=== PATIENT | male | born 1955 | race Caucasian/White ===

== ENCOUNTER → 2017-11-11 10:28 | Outpatient (CLI) | payer OTHER, SELFPAY ==
--- NOTE | 2017-11-11 10:39 | RAD_ITS ---
STUDY: X-RAY CHEST REASON FOR EXAM: Male, 62 years old. Fever, cough TECHNIQUE: Frontal and lateral views COMPARISON: None. FINDINGS: The lungs are clear and expanded. There is no demonstrated pleural abnormality. Normal size heart. Normal mediastinum and joann. Normal visualized pulmonary arteries. Normal visualized aortic arch and descending thoracic aorta. Mild degenerative changes and scoliosis of thoracic spine. Normal visualized ribs, clavicles, and shoulders. There is no demonstrated abnormality of the visualized soft tissue structures of the upper abdomen. RAD/Chest PA and Lateral IMPRESSION: No acute pulmonary pathology of the chest. Electronically Signed: Eduin Murphy DO at 11:12 EDT Tel [phone], Service support ,
== END ==
PROVIDERS: Visit Provider Physician Assistant Surgical
DX: R06.02 Shortness of breath (principal)
CPT/HCPCS: 71046

== ENCOUNTER 2017-11-13 15:17 | Emergency (ER) | payer OTHER, SELFPAY ==
[2017-11-13 15:18] VITALS: BP 149/71; PULSE 87; RESP 16; TEMP 38.4; O2SAT 98; BMI 24.3
--- NOTE | 2017-11-13 15:35 | RAD_ITS ---
STUDY: X-RAY CHEST REASON FOR EXAM: Male, 62 years old. Fever x1 week TECHNIQUE: PA and lateral views of the chest. 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 The lungs are clear and expanded. There is no demonstrated pleural abnormality. Normal size heart. Normal mediastinum and joann. Normal visualized pulmonary arteries. Normal visualized aortic arch and descending thoracic aorta. There is a mild thoracic dextroscoliosis. There is mild diffuse endplate spondylosis of the thoracic spine. Normal visualized ribs, clavicles, and shoulders. There is no demonstrated abnormality of the visualized soft tissue structures of the upper abdomen. RAD/Chest PA and Lateral IMPRESSION: Mild thoracic dextroscoliosis. Mild diffuse endplate spondylosis of the thoracic spine. Calcified plaques of the aortic arch. No acute cardiopulmonary disease process is seen. Chest findings are stable in the interval. Electronically Signed: Nghia Ford MD at 16:31 EDT , Service support ,
--- NOTE | 2017-11-13 15:39 | ED.DCSUM_ITS ---
- ER Visit Summary Date of Service: 11/13/17 Chief Complaint: Fever History of Present Illness: The patient is a 62 M with no primary care physician. He reports he has a fever that began 1 week ago. States that it seems to be worst in the morning and has been as high as 103?. Complains of chills and sweats when the fever breaks. He denies sore throat or ear pain. He has a little bit of cough that is nonproductive. No chest pain or difficulty breathing. No abdominal pain, nausea, vomiting, or diarrhea. His last bowel movement was today. He has had no melena or hematochezia. He denies any rectal pain. No dysuria or frequency. He reports that he has a headache that comes and goes with the fever and is currently 4 out of 10 in severity. Patient reports that he was seen at urgent care and had a chest x-ray 2 days ago that was unremarkable. He had a rapid strep today that was negative. [place] has [place] been out of the [place] and has had mosquito bites. Physical Examination: Vitals: 101.2, 149/71, 87, 16, 98% on room air which is not hypoxic. General: Well-nourished and well-developed. Head: Normocephalic atraumatic. HEENT: Scarring of his right TM. No evidence of otitis media. No pharyngeal erythema or tonsillar exudate. Neck: Supple, no lymphadenopathy. No JVD. Nontender. Cardiovascular: Regular rate and rhythm. No murmurs. Respiratory: No respiratory distress. Clear to auscultation bilaterally. Abdominal: Soft, nontender, nondistended, normal bowel sounds. No guarding, rebound, or peritoneal signs. Back: Nontender. Extremities: Nontender, no edema. Skin: Normal color, no rash. Neurologic: Alert and oriented ?3. Cranial nerves II through XII are intact. Normal strength and sensation. Psych: Normal affect. Test Results: CBC is marked first lymphocytes of 42. Chem-7 is more for sodium 135 potassium 3.3. LFTs marked for an alk phos 122, ALT of 67, AST 42. UA is normal. Lactic acid is 1.8. Chest x-ray shows chronic changes but in no acute disease. Right upper quadrant ultrasound shows an unremarkable gallbladder. Normal distended gallbladder with a 3 mm wall. No Andre sign. No pericholecystic fluid or biliary stones. Common bile duct is 4 mm. Emergency Department Course and Treatment: Patient had an IV placed. He was given a liter of normal saline. He was given Tylenol for his fever. He is resting comfortably. Had a prolonged discussion with the patient about the possibility of viral meningitis. He is refused a spinal tap. I feel that is a reasonable course of action. Treatment Plan: Patient was discussed with Dr. Alfred and will be discharged with instructions to follow-up with him next week for further evaluation. Blood cultures were sent while he was here. Return to the emergency department for any worsening symptoms. Disposition: To home in improved and stable condition. Impression: 1. Fever, uncertain cause. This note was generated with [employer] dictation software. It may contain incorrect words, spelling, and punctuation that were not noted in review of the chart prior to signing ED Disposition - Plan for ED Patient: Disposition: Home or Assisted Living Chief Complaint: Fever Instructions: ED Fever Unconf Cause Referrals: Ladarius Alfred MD [STAFF PHYSICIAN] - 5-7 Days
[2017-11-13 15:59] LABS: Absolute Lymphocyte Count 1.97 X10^3/ul (0.83-4.51); Absolute Neutrophil Count 2.3 X10^3/uL (2.0-7.7); Basophil# 0.04 X10^3/uL; Basophil% 0.9 % (0-1); Eosinophil# 0.04 X10^3/uL; Eosinophils% 0.9 % (0-5); Hematocrit 40.4 % (40-54); Lymphocyte # 1.97 X10^3/ul (4.0); Lymphocyte % 42.3 % (19-41); Mean Corp Hgb Conc 34.7 g/gl (32-36); Mean Corpuscular Hgb 29.3 pg (27.0-32.0); Mean Corpuscular Volume 84.5 fL (80-94); Mean Platelet Vol. 9.4 fl (6.2-12.0); Monocyte# 0.32 X10^3/uL; Monocyte% 6.9 % (0-10); Neutrophil # 2.29 X10^3/uL (2.7-7.7); Platelet Count 159 K/mm3 (150-450); RBC Distribution Width CV 12.5 % (11.6-14.6); Red Blood Count 4.78 M/mm3 (4.6-6.2); White Blood Count 4.7 K/mm3 (4.4-11.0)
[2017-11-13] MEDS: Acetaminophen 500 MG Tablet 1000 MG PO (16:00)
[2017-11-13] MEDS: 0.9% Normal Saline 1,000 ML 1000 ML IV (16:15)
[2017-11-13 16:20] LABS: ALB/GLOB Ratio 0.9 RATIO (0.9-2.4); AST(SGOT) 42 U/L (15-37); Alanine Aminotransfer ALT/SGPT 67 U/L (16-61); Albumin, Serum 3.4 g/dL (3.2-5.0); Alkaline Phosphatase 122 U/L (45-117); Anion Gap 5 (5-15); BUN 9 mg/dL (7-18); BUN/Creat Ratio 7.3 RATIO (10-20); Chloride 98 mmol/L (98-107); Creatinine, Serum 1.23 mg/dL (0.70-1.30); EST Glomerular Filtration Rate 63 mL/min (>60); Est Glom Filt Rate - Afr Amer 77 mL/min (>60); Estimated Creatinine Clearance 63.07 ml/min; Globulin 3.9 g/dL (2.2-4.2); Glucose 99 mg/dL (74-106); Potassium 3.3 mmol/L (3.5-5.1); Protein, Total 7.3 g/dL (6.4-8.2); Sodium Level 135 mmol/L (136-145)
[2017-11-13 16:21] LABS: POSITIVE COUNT NO; POSITIVE DIFFERENTIAL NO; POSITIVE MORPHOLOGY NO
[2017-11-13 16:43] LABS: Lactic Acid 1.8 mmol/L (0.4-2.0)
--- NOTE | 2017-11-13 17:25 | US_ITS ---
STUDY: ABDOMINAL ULTRASOUND - RIGHT UPPER QUADRANT REASON FOR VISIT: Male, 62 years old. Abnormal labs TECHNIQUE: Ultrasound evaluation of the right upper quadrant was performed with real-time and static esteban-scale imaging. TECHNICAL QUALITY: Limited. Examination limited by bowel gas. COMPARISON: None. FINDINGS: Liver: The liver measures 14.8 cm. There is normal echogenicity of the liver. The bile ducts are within normal limits. There is hepatic color flow. The direction of portal flow is hepatopetal. There is no demonstrated mass lesion. Gallbladder: Normal distended gallbladder. The gallbladder wall measures 3 mm. There is a negative sonographic Andre's sign. There is no pericholecystic fluid. There are no gallstones. Common Bile Duct (C.B.D.): The common bile duct measures 4 mm. Pancreas: There is nonvisualization of the pancreas. Right Kidney: Normal size of the right kidney. The right kidney measures 11.1 cm. Normal renal cortex. The right cortex measures 1.3 cm. There is no demonstrated renal mass or cyst. There is no right hydronephrosis. US/Gallbladder IMPRESSION: Nonvisualized pancreas. Unremarkable gallbladder. Normal appearance of the liver and right kidney Electronically Signed: Matthew Marshall DO at 18:31 EDT Tel , Service support ,
[2017-11-13 17:48] LABS: Bacteria 0 SEEN /hpf (None Seen); Mucous, Urine 0 SEEN /hpf (<or=2+); Red Blood Cells-Urine 0 SEEN /hpf (0-5); Squamous Epithelial Cells - UA 0 SEEN /hpf (0-5); White Blood Cells 0 SEEN /hpf (0-5)
[2017-11-13 18:52] VITALS: BP 126/74; PULSE 80; RESP 18; O2SAT 96
[2017-11-13 18:53] LABS: Color, Urine Yellow (Yellow); Glucose, Dipstick Normal (Normal); Ketone-Dipstick Negative (Negative); Leukocyte Esterase-Dipstick Negative /ul (Negative); Nitrite-Dipstick Negative (Negative); Occult Blood-Urine Negative /ul (Negative); Protein-Dipstick Negative (Negative); Urine Bilirubin Dipstick Negative (Negative); Urine Clarity Clear (Clear); Urine Urobilinogen Normal (Normal)
[2017-11-13 19:43] VITALS: BP 123/82; PULSE 77; RESP 18; TEMP 36.9; O2SAT 95
[2017-11-13 19:54] VITALS: BP 116/75; PULSE 78; RESP 18; TEMP 36.9; O2SAT 95
--- NOTE | 2017-11-19 14:45 | CM.ED ---
Addendum entered by Gilda Vaughn 11/19/17 15:48: Dr. Alfred's office returned call. Patient is scheduled for earliest available appointment, on ThursdayDecember 01 at 0830. Patient will be notified of appointment. Original Note: ED CALLBACK: Patient states his fever is 101.0 today and he has had fevers for two weeks. He just noticed a rash developing on his chest. Patient denies fatigue at this time. Patient was instructed to f/u with Infectious Disease this week. He called to make an appointment today and was told the first available appt is early December. I contacted ID office, sent clinicals. Awaiting return call to tell me if they can see him any sooner. Encouraged patient to return to the ED given two weeks of persistent fever and new rash. Patient does not have an established PCP at this time. Patient states he is in agreement and will return to the ED today.
== END 2017-11-13 19:59 | disposition home or self-care (01) ==
PROVIDERS: Emergency Provider Emergency Medicine
DX: R50.9 Fever, unspecified (principal); R05 Cough; R51 Headache
CPT/HCPCS: 71046; 76705; 80053; 81001; 83605; 85025; 87040; 99284; J7030

== ENCOUNTER 2017-11-20 15:56 | Emergency (ER) | payer OTHER, SELFPAY ==
[2017-11-20 15:58] VITALS: BP 152/79; PULSE 94; RESP 16; TEMP 37.8; O2SAT 93; BMI 24.0
--- NOTE | 2017-11-20 17:11 | CT_ITS ---
STUDY: CT ABDOMEN AND PELVIS WITH CONTRAST REASON FOR EXAM: Male, 62 years old. Fever of unknown origin x2 weeks RADIATION DOSAGE (If Supplied By Facility): CTDIvol = ( 12.05 ) mGy, DLP = ( 892.53 ) mGycm TECHNIQUE: Transaxial images were obtained from the dome of the diaphragm to the symphysis pubis without oral contrast. 100mL ml of Isovue 370 contrast was administered. Sagittal and coronal images were reconstructed. Individualized dose optimization techniques were used for this CT. COMPARISON: None FINDINGS: Bibasilar airspace disease. The visualized portions of the heart are within normal limits. There is decreased attenuation of the liver consistent with steatosis. Several small nonenhancing liver cysts. Normal gallbladder and extrahepatic biliary system. Normal spleen. Normal pancreas. Normal bilateral adrenal glands. Normal right kidney. Normal left kidney. Normal visualized stomach. Normal small intestine. There are multiple colonic diverticula consistent with diverticulosis. The appendix is visualized and appears normal. Normal abdominal aorta. Normal inferior vena cava. Normal retroperitoneum. Normal urinary bladder. There is enlargement of the prostate gland. Small amount of nonspecific pelvic free fluid. Normal abdominal wall. There are diffuse degenerative changes of the visualized lumbar spine. CT/Abdomen/Pelvis W IV Cont ONLY IMPRESSION: 1. Bibasilar airspace disease 2. Unremarkable appendix and gallbladder. No acute findings in the abdomen or pelvis 3. Small amount of nonspecific pelvic free fluid Electronically Signed: Matthew Marshall DO at 18:38 EDT Tel , Service support ,
--- NOTE | 2017-11-20 17:11 | CT_ITS ---
STUDY: CT CHEST WITH CONTRAST REASON FOR EXAM: Male, 62 years old. Fever of unknown origin x2 weeks RADIATION DOSAGE (If Supplied By Facility): CTDIvol = ( 12.05 ) mGy, DLP = ( 892.53 ) mGycm TECHNIQUE: Transaxial imaging was performed following intravenous administration of 100mL ml of Isovue 370 contrast material. Individualized dose optimization techniques were used for this CT. COMPARISON: None. FINDINGS: Unremarkable thyroid. Left chest wall pacing device. The lungs are adequately inflated. Bibasilar airspace disease is noted. Infection cannot be excluded versus mild scarring. Lungs are otherwise clear. There is no demonstrated pleural abnormality. Normal heart and pericardium. Normal mediastinum. Normal hilar regions. Normal enhanced pulmonary arteries. Normal aorta arch and descending thoracic aorta. There are multi-level degenerative changes of the thoracic spine. There is no demonstrated abnormality of the visualized upper abdomen. CT/Chest WITH Contrast IMPRESSION: Adequately inflated lungs with bibasilar airspace disease. Infection cannot be excluded. No suspicious lymphadenopathy. Electronically Signed: Matthew Marshall DO at 18:39 EDT Tel , Service support ,
[2017-11-20 17:50] LABS: Absolute Lymphocyte Count 3.74 X10^3/ul (0.83-4.51); Absolute Neutrophil Count 1.4 X10^3/uL (2.0-7.7); Basophil# 0.08 X10^3/uL; Basophil% 1.4 % (0-1); Eosinophils% 1.7 % (0-5); Hematocrit 37.8 % (40-54); Hemoglobin 12.5 g/dl (13.0-16.5); Lymphocyte # 3.74 X10^3/ul (4.0); Lymphocyte % 65.4 % (19-41); Mean Corp Hgb Conc 33.1 g/gl (32-36); Mean Corpuscular Hgb 28.6 pg (27.0-32.0); Mean Corpuscular Volume 86.5 fL (80-94); Monocyte# 0.39 X10^3/uL; Monocyte% 6.8 % (0-10); Neutrophil % 24.5 % (47-70); POSITIVE COUNT NO; POSITIVE DIFFERENTIAL NO; POSITIVE MORPHOLOGY NO; Platelet Count 188 K/mm3 (150-450); RBC Distribution Width CV 13.5 % (11.6-14.6); RBC Distribution Width SD 42.7 fl (35.1-43.9); Red Blood Count 4.37 M/mm3 (4.6-6.2); White Blood Count 5.7 K/mm3 (4.4-11.0)
[2017-11-20] MEDS: 0.9% Normal Saline 1,000 ML 999 ML IV (17:50)
[2017-11-20 17:55] LABS: Erythrocyte Sedimentation Rate 1 mm/hr (0-20)
[2017-11-20 18:04] LABS: AST(SGOT) 57 U/L (15-37); Alanine Aminotransfer ALT/SGPT 113 U/L (16-61); Albumin, Serum 3.1 g/dL (3.2-5.0); Alkaline Phosphatase 116 U/L (45-117); Anion Gap 4 (5-15); BUN 6 mg/dL (7-18); BUN/Creat Ratio 5.6 RATIO (10-20); Bilirubin, Direct 0.17 mg/dL (0.00-0.30); Calcium,Total 8.4 mg/dL (8.5-10.1); Chloride 104 mmol/L (98-107); Creatinine, Serum 1.07 mg/dL (0.70-1.30); EST Glomerular Filtration Rate 75 mL/min (>60); Est Glom Filt Rate - Afr Amer 90 mL/min (>60); Globulin 3.4 g/dL (2.2-4.2); Glucose 84 mg/dL (74-106); Potassium 3.8 mmol/L (3.5-5.1); Protein, Total 6.5 g/dL (6.4-8.2); Sodium Level 139 mmol/L (136-145)
[2017-11-20 18:55] VITALS: BP 154/87; PULSE 96; RESP 14; TEMP 37.1; O2SAT 98
--- NOTE | 2017-11-20 19:07 | ED.VISSUMM ---
- ER Visit Summary Date of Service: 11/20/17 Chief Complaint: Fever History of Present Illness: The patient is a [address] Bazan and was referred to Dr. Alfred. He reports that he has fear that began 2 weeks ago. States that last week it had been up to 103?. He was seen emerge department had a workup undertaken and was discharged instructions to follow-up with infectious diseases. Reports that earlier this week the fever seemed to have improved and was only 100? in the morning. He reports that it was back up to 101 yesterday. Patient denies any sore throat, cough, chest pain or difficulty breathing. No abdominal pain, nausea, vomiting, or diarrhea. No dysuria or frequency. He reports that he did notice a rash to his chest over the course the past week. He reports that he would get blisters that popped and then were raw. He states that these drained clear fluid and that the rash has now resolved. He denies any headache, numbness, or weakness. He does report that he feels more fatigued than usual. Patient reports that he did have a number of mosquito bites approximately 2 weeks before this began. He has not had any tick bites. Has not been out of the country. Physical Examination: Vitals: Stable. Afebrile. General: Well-nourished and well-developed. Head: Normocephalic atraumatic. Neck: Supple, no lymphadenopathy. No JVD. Nontender. Cardiovascular: Regular rate and rhythm. No murmurs. Respiratory: No respiratory distress. Clear to auscultation bilaterally. Abdominal: Soft, nontender, nondistended, normal bowel sounds. No guarding, rebound, or peritoneal signs. Back: Nontender. Extremities: Nontender, no edema. Skin: Normal color, no rash. Neurologic: Alert and oriented ?3. Cranial nerves II through XII are intact. Normal strength and sensation. Psych: Normal affect. Test Results: CBC is marked for an H&H 12.5 and 37.8, 7 neutrophils 25, lymphocytes of 65. Chem-7 more for BUN is 6. Calcium is 8.4. LFTs marked for an albumin at 3.1, AST of 57, ALT of 113. ESR is 1. CT abdomen pelvis shows no acute disease. Normal appendix and gallbladder. CT chest shows bibasilar airspace disease infection versus mild scarring. Emergency Department Course and Treatment: Patient was discussed with infectious disease prior to ordering labs. An KAT was ordered. Blood cultures were repeated. HIV tests were ordered. Given the findings on the CT scan patient was given a dose of doxycycline p.o. Treatment Plan: Patient will be discharged on 10 days of doxycycline. Instructed to follow-up his primary care physician in 3-5 days for another exam. Follow-up infectious disease December 01 as previously scheduled. Return to the emergency department for any worsening symptoms. Disposition: To home in improved and stable condition. Impression: 1. Fever, uncertain cause. This note was generated with [employer] dictation software. It may contain incorrect words, spelling, and punctuation that were not noted in review of the chart prior to signing ED Disposition - Plan for ED Patient: Disposition: Home or Assisted Living Chief Complaint: Fever Instructions: ED Fever Unconf Cause Prescriptions: Ondansetron [Zofran Odt] 4 mg PO Q8H PRN PRN #10 tablet PRN Reason: Nausea Doxycycline Monohydrate 100 mg PO BID #20 capsule Referrals: Bar Rubalcava MD [STAFF PHYSICIAN] - 3-5 Days Ladarius Alfred MD [STAFF PHYSICIAN] - Keep Rafael appointment
[2017-11-20] MEDS: Doxycycline 100 MG CAPSULE PO (19:25)
[2017-11-20 19:31] VITALS: BP 136/88; PULSE 86; RESP 16; O2SAT 94
[2017-11-20 19:40] LABS: HIV - WCH Non-Reactive (Nonreactive)
--- NOTE | 2017-11-23 10:04 | CM.ED ---
Updated clinicals, from this visit, sent to Dr. Alfred's office at this time.
[2017-12-04 09:51] LABS: ANTINUCLEAR ANTIBODIES DIRECT Negative (Negative); HIV-1 RNA by PCR, Quant. < 20 copies/mL (.)
== END 2017-11-20 19:32 | disposition home or self-care (01) ==
PROVIDERS: Emergency Provider Emergency Medicine
DX: R50.9 Fever, unspecified (principal); R21 Rash and other nonspecific skin eruption; R53.83 Other fatigue
CPT/HCPCS: 71260; 74177; 80048; 80076; 85025; 85652; 86038; 86225; 86235; 86703; 87040; 87536; 96360; 99284; J7030; Q9967

== ENCOUNTER → 2020-06-22 09:18 | Outpatient (CLI) | payer OTHER, SELFPAY ==
[2018-01-21 12:21] VITALS: BMI 24.0
[2020-06-22 12:42] LABS: Cholesterol 159 mg/dL (200); High Density Lipoprotein 49 mg/dL; Triglycerides 63 mg/dL; Very Low Density Lipoprotein 13 mg/dL (5-40)
== END ==
PROVIDERS: Visit Provider Family Medicine
DX: Z00.00 Encounter for general adult medical examination without abnormal findings (principal)
CPT/HCPCS: 36415; 80061

== ENCOUNTER 2020-08-03 05:58 | Day surgery (SDC) | payer OTHER, SELFPAY ==
[2020-08-03] VITALS (8 sets, daily range): BP systolic 99–152; BP diastolic 70–100; PULSE 50–79; RESP 16; TEMP 35.9–37.3; O2SAT 84–100; BMI 25.3
--- NOTE | 2020-08-03 06:25 | PCM.HP.STD ---
Problem List (1) Screening for intestinal cancer Status: Acute History of Present Illness Date of Admission: 08/03/20 The patient is a 65 year old M who presents for screening colonoscopy today. He has never had a previous one. He denies any chronic medical problems. He denies tobacco use. He states that he is in good health. No bright red blood per rectum or melena. No abdominal pain. Claims no exposure to COVID-19. He states that he got his first COVID-19 vaccination last week. He was sick after that. Past Medical History Medical History: Medical History (Last Reviewed 01/21/18 @ 12:24 by Yoli Cao) SOB (shortness of breath) R06.02 Allergies No Known Allergies Allergy (Verified 07/31/20 08:25) Home Medications: Ambulatory Orders Medication Instructions Recorded NK 08/03/20 Smoking Status: Never smoker Tobacco Use: Non-smoker Review of Systems Constitutional: Denies: Chills, Fever Cardiovascular: Denies: Chest Pain Respiratory: Denies: Cough Gastrointestinal: Denies: Abdominal Pain, Nausea, Melena VTE Information - Inpt Only VTE Present on Admission: No - Physical Exam General: Alert, Oriented x3 HEENT: Atraumatic Oral: Moist Mucosa Lungs: Normal air movement, - - Very slight wheeze on the right Cardiovascular: Regular rate, Regular Rhythm Abdomen: Soft, Non Tender Extremities: No Calf Tenderness Psych/Mental Status: Anxious Microbiology Past 72 Hours 08/02/20 08:51 Interface Orders SARS-CoV-2 Antigen (Rapid) - Final Assessment/Plan All Active Problems (Last Reviewed 01/21/18 @ 12:24 by Yoli Cao) Screening for intestinal cancer (Acute) Sinusitis (Acute) Fever (Acute) Shortness of breath on exertion (Acute) 65-year-old gentleman who has not had a previous colonoscopy presents for screening via open access. He has had an opportunity to ask and have questions answered. Anticipate proceeding with a colonoscopy with possible biopsy or polypectomy as indicated. Leandro Lema M.D., F.A.C.S.
[2020-08-03] MEDS: Lactated Ringers 1,000 ML 100 ML IV (06:33)
--- NOTE | 2020-08-03 07:33 | OP.CCLET_ITS ---
08/03/2020 Sharon Anguiano [place] [id number] [place] [address] Re : Colonoscopy procedure for Alex Houser Dear Dr. Anguiano This procedure was performed on Monday, August 03, 2020. My impressions and recommendations are as follows: Impressions : - Non-thrombosed internal hemorrhoids, internal hemorrhoids that prolapse with straining, but spontaneously regress to the resting position (Grade II) and enlarged prostate found on digital rectal exam. - Diverticulosis in the sigmoid colon and in the descending colon. - The examination was otherwise normal. - No specimens collected. Recommendations : - Discharge patient to home. - Resume previous diet. - Continue present medications. - Repeat colonoscopy in 10 years for screening purposes. Followup with Dr Anguiano regarding slight chest wheeze My findings are described in the full procedure note, which is enclosed. If I can be of further assistance, please feel free to contact me at Doctor phone number(s): Work: . Sincerely, Leandro Lema MD 08/03/2020 7:32:41 AM This report has been signed electronically.
--- NOTE | 2020-08-03 07:33 | OP.COLON_ITS ---
Patient Name: Alex Houser Procedure Date: 08/03/2020 7:03 AM Date of : 1955 Age: 65 Procedure: Colonoscopy Indications: Screening for colorectal malignant neoplasm Providers: Leandro Lema MD Referring MD: Sharon Anguiano Medicines: Midazolam 3.5 mg IV, Meperidine 100 mg IV Patient Profile: Last Colonoscopy: none. The patient's first colonoscopy is today. Complications: No immediate complications. Procedure: Pre-Anesthesia Assessment: - Prior to the procedure, a History and Physical was performed, and patient medications and allergies were reviewed. The patient's tolerance of previous anesthesia was also reviewed. The risks and benefits of the procedure and the sedation options and risks were discussed with the patient. All questions were answered, and informed consent was obtained. Prior Anticoagulants: The patient has taken no previous anticoagulant or antiplatelet agents. ASA Grade Assessment: II - A patient with mild systemic disease. After reviewing the risks and benefits, the patient was deemed in satisfactory condition to undergo the procedure. After I obtained informed consent, the scope was passed under direct vision. Throughout the procedure, the patient's blood pressure, pulse, and oxygen saturations were monitored continuously. The adult colonoscope was introduced through the anus and advanced to the cecum, identified by appendiceal orifice and ileocecal valve. The colonoscopy was somewhat difficult due to a tortuous colon. Successful completion of the procedure was aided by applying abdominal pressure. The patient tolerated the procedure well. The quality of the bowel preparation was adequate to identify polyps. The ileocecal valve and the appendiceal orifice were photographed. Moderate Sedation: Moderate (conscious) sedation was personally administered by the endoscopist. The following parameters were monitored: oxygen saturation, heart rate, blood pressure, and response to care. Total physician intraservice time was 15 minutes. Scope In: 7:13:44 AM Scope Withdrawal Time 0 hours 7 minutes 4 seconds Scope Out: 7:26:44 AM Total Procedure Duration Time 0 hours 13 minutes 0 seconds Findings: The digital rectal exam findings include non-thrombosed internal hemorrhoids, internal hemorrhoids that prolapse with straining, but spontaneously regress to the resting position (Grade II) and slightly enlarged prostate. Multiple diverticula were found in the sigmoid colon and descending colon. The exam was otherwise without abnormality. Impression: - Non-thrombosed internal hemorrhoids, internal hemorrhoids that prolapse with straining, but spontaneously regress to the resting position (Grade II) and enlarged prostate found on digital rectal exam. - Diverticulosis in the sigmoid colon and in the descending colon. - The examination was otherwise normal. - No specimens collected. Recommendation: - Discharge patient to home. - Resume previous diet. - Continue present medications. - Repeat colonoscopy in 10 years for screening purposes. Followup with Dr Anguiano regarding slight chest wheeze Procedure Code(s): --- Professional --- 47315, Colonoscopy, flexible; diagnostic, including collection of specimen(s) by brushing or washing, when performed (separate procedure) 16331, 59, Moderate sedation services provided by the same physician or other qualified health ocular care aide performing the diagnostic or therapeutic service that the sedation supports, requiring the presence of an independent trained observer to assist in the monitoring of the patient's level of consciousness and physiological status; initial 15 minutes of intraservice time, patient age 5 years or older Diagnosis Code(s): --- Professional --- Z12.11, Encounter for screening for malignant neoplasm of colon K64.1, Second degree hemorrhoids N40.0, Benign prostatic hyperplasia without lower urinary tract symptoms K57.30, Diverticulosis of large intestine without perforation or abscess without bleeding CPT copyright 2017 [employer]. All rights reserved. The codes documented in this report are preliminary and upon breaker off review may be revised to meet current compliance requirements. Leandro Lema MD 08/03/2020 7:32:41 AM This report has been signed electronically. Number of Addenda: 0 Note Initiated On: 08/03/2020 7:03 AM
== END 2020-08-03 08:24 | disposition home or self-care (01) ==
LOC: EN 05:59 → AC 05:59
PROVIDERS: PCP Family Medicine; Referring Provider Family Medicine; Visit Provider Surgery
PROC: 0DJD8ZZ Inspection of Lower Intestinal Tract, Via Natural or Artificial Opening Endoscopic (ICD-10-PCS; CPT 45378; principal; 2020-08-03 06:55)
DX: Z12.11 Encounter for screening for malignant neoplasm of colon (principal); K64.1 Second degree hemorrhoids; K57.30 Diverticulosis of large intestine without perforation or abscess without bleeding; N40.0 Benign prostatic hyperplasia without lower urinary tract symptoms
CPT/HCPCS: 45378; 87426; 99152; 99153; C9803; J7120

== ENCOUNTER → 2022-12-18 | Outpatient (CLI) | payer OTHER, MEDICARE, SELFPAY ==
[2022-12-18 10:56] LABS: Absolute Lymphocyte Count 1.83 X10^3/uL (0.83-4.51); Absolute Neutrophil Count 3.2 X10^3/uL (2.0-7.7); Basophil# 0.05 X10^3/uL; Basophil% 0.9 % (0-1); Eosinophil# 0.28 X10^3/uL; Eosinophils% 4.9 % (0-5); Hematocrit 47.6 % (40-54); Hemoglobin 16.1 g/dL (13.0-16.5); Lymphocyte # 1.83 X10^3/ul (0.83-4.51); Lymphocyte % 31.7 % (19-41); Mean Corp Hgb Conc 33.8 g/dL (32-36); Mean Corpuscular Hgb 29.5 pg (27.0-32.0); Mean Corpuscular Volume 87.2 fL (80-94); Mean Platelet Vol. 10.3 fl (6.2-12.0); Monocyte# 0.36 X10^3/uL; Monocyte% 6.2 % (0-10); NRBC Flagged by Analyzer 0 % (0-5); Neutrophil # 3.24 X10^3/uL (2.7-7.7); Neutrophil % 56.1 % (47-70); Platelet Count 228 K/mm3 (150-450); RBC Distribution Width CV 12.2 % (11.6-14.6); RBC Distribution Width SD 38.1 fl (35.1-43.9); Red Blood Count 5.46 M/mm3 (4.6-6.2); White Blood Count 5.8 K/mm3 (4.4-11.0)
[2022-12-18 11:01] LABS: Erythrocyte Sedimentation Rate 4 mm/hr (0-20)
[2022-12-18 11:08] LABS: ALB/GLOB Ratio 1.1 RATIO (0.9-2.4); AST(SGOT) 23 U/L (15-37); Alanine Aminotransfer ALT/SGPT 38 U/L (16-61); Alkaline Phosphatase 94 U/L (45-117); Anion Gap 7 (5-15); BUN 13 mg/dL (7-18); BUN/Creat Ratio 10.1 RATIO (10-20); Calcium,Total 9.9 mg/dL (8.5-10.1); Chloride 105 mmol/L (98-107); Cholesterol 149 mg/dL (200); Creatinine, Serum 1.29 mg/dL (0.70-1.30); EST Glomerular Filtration Rate 59 mL/min (>60); Est Glom Filt Rate - Afr Amer 72 mL/min (>60); Globulin 3.6 g/dL (2.2-4.2); Glucose 97 mg/dL (74-106); High Density Lipoprotein 54 mg/dL; Potassium 3.6 mmol/L (3.5-5.1); Protein, Total 7.6 g/dL (6.4-8.2); Sodium Level 138 mmol/L (136-145); Triglycerides 69 mg/dL; Very Low Density Lipoprotein 14 mg/dL (5-40)
[2022-12-18 12:21] LABS: Color, Urine Yellow (Yellow); Glucose, Dipstick Normal (Normal); Ketone-Dipstick 50 mg/dl (Negative); Leukocyte Esterase-Dipstick Negative /ul (Negative); Nitrite-Dipstick Negative (Negative); Occult Blood-Urine 10 /ul (Negative); Protein-Dipstick 15 mg/dl (Negative); Urine Bilirubin Dipstick Negative (Negative); Urine Clarity Clear (Clear); Urine Urobilinogen Normal (Normal)
[2022-12-19 13:08] LABS: Angiotensin Convert Enzyme 39 U/L (14-82)
== END | disposition home or self-care (01) ==
PROVIDERS: PCP Family Medicine; Referring Provider Family Medicine; Visit Provider Family Medicine
DX: Z00.00 Encounter for general adult medical examination without abnormal findings (principal); R59.0 Localized enlarged lymph nodes; E78.5 Hyperlipidemia, unspecified
CPT/HCPCS: 36415; 80053; 80061; 81002; 82164; 82330; 85025; 85652

== ENCOUNTER → 2023-01-02 | Outpatient (CLI) | payer MEDICARE, SELFPAY ==
--- NOTE | 2023-01-02 06:44 | CT_ITS ---
INDICATION: ABN CXR EXAMINATION: CT CHEST WITH CONTRAST - CT Chest W/ Contrast Injection TECHNIQUE: Helically acquired images were obtained of the chest following IV contrast. A radiation dose optimization technique was used for this scan. IV Contrast dosage and agent: COMPARISON: None. FINDINGS: LUNGS, PLEURA AND LARGE AIRWAYS: No masses, consolidation, or edema. No pleural effusion or thickening. No pneumothorax. THYROID: No thyroid lesions. HEART AND PERICARDIUM: Heart size is normal. No pericardial effusion. VESSELS: Thoracic aorta is not dilated. No aortic dissection. No obvious central pulmonary embolism although this study was not performed with the pulmonary embolism protocol. MEDIASTINUM AND DAVID: No mediastinal or hilar adenopathy. Esophagus is unremarkable. No hiatal hernia. UPPER ABDOMEN: No acute pathology. BONES: No suspicious lytic or blastic abnormality. CT/Chest WITH Contrast IMPRESSION: Negative contrast enhanced CT of the chest. Electronically Signed: Walter Faustin MD at 17:47 EDT ,
== END | disposition home or self-care (01) ==
LOC: CT 06:44
PROVIDERS: PCP Family Medicine; Referring Provider Family Medicine; Visit Provider Family Medicine
DX: R59.0 Localized enlarged lymph nodes (principal); D86.9 Sarcoidosis, unspecified
CPT/HCPCS: 71260; Q9967

== ENCOUNTER → 2024-01-21 | Outpatient (CLI) | payer MEDICARE, SELFPAY ==
[2024-01-21 12:52] LABS: ALB/GLOB Ratio 1.1 RATIO (0.9-2.4); AST(SGOT) 17 U/L (15-37); Alanine Aminotransfer ALT/SGPT 29 U/L (16-61); Alkaline Phosphatase 101 U/L (45-117); Anion Gap 8 (5-15); BUN 13 mg/dL (7-18); BUN/Creat Ratio 10.8 RATIO (10-20); Calcium,Total 10.1 mg/dL (8.5-10.1); Chloride 103 mmol/L (98-107); EST Glomerular Filtration Rate 64 mL/min (>60); Est Glom Filt Rate - Afr Amer 77 mL/min (>60); Globulin 3.7 g/dL (2.2-4.2); Glucose 96 mg/dL (74-106); Potassium 4.2 mmol/L (3.5-5.1); Protein, Total 7.7 g/dL (6.4-8.2); Sodium Level 137 mmol/L (136-145)
== END | disposition home or self-care (01) ==
LOC: BFHLAB 09:31
PROVIDERS: PCP Family Medicine; Referring Provider Family Medicine; Visit Provider Family Medicine
DX: N18.2 Chronic kidney disease, stage 2 (mild) (principal)
CPT/HCPCS: 36415; 80053

== ENCOUNTER → 2025-01-26 | Outpatient (CLI) | payer MEDICARE, SELFPAY ==
[2025-01-26 12:55] LABS: Anion Gap 11 (5-15); BUN 11 mg/dL (4-19); BUN/Creat Ratio 9.3 RATIO (10-20); Calcium,Total 9.9 mg/dL (7.6-11.0); Carbon Dioxide 24.7 mmol/L (21.0-32.0); Chloride 104 mmol/L (98-108); Glucose 93 mg/dL (70-99); Potassium 3.8 mmol/L (3.3-5.1)
== END | disposition home or self-care (01) ==
LOC: BFHLAB 09:28
PROVIDERS: PCP Family Medicine; Visit Provider Family Medicine
DX: N18.2 Chronic kidney disease, stage 2 (mild) (principal)
CPT/HCPCS: 36415; 80048